=== PATIENT | male | born 1950 | race Hispanic/Latino ===

== ENCOUNTER 2017-10-25 08:14 | Day surgery (SDC) | payer MEDICARE ==
[2017-10-24 13:17] VITALS: BMI 29.4
[2017-10-25 09:14] LABS: Hemoglobin 15.8 g/dL (14.0-18.0); Mean Corpuscular HGB CONC 34.8 g/dL (32.0-36.0); Mean Corpuscular Hemoglobin 33.2 pg (27.0-31.0); Mean Corpuscular Volume 95.2 fl (80.0-94.0); Mean Platelet Volume 8.9 fL (7.4-10.4); Platelet Count 155 thou/uL (130-400); RBC Distribution Width 11.9 % (11.5-14.5); Red Blood Cell (RBC) Count 4.77 mill/uL (4.70-6.10); White Blood Cell (WBC) Count 6.3 thou/uL (4.8-10.8)
[2017-10-25 09:33] LABS: PTT 31.5 SEC (22.9-36.1); Prothrombin Time 13.2 SEC (12.0-14.7)
[2017-10-25 09:35] LABS: Anion Gap 11 mmol/L (10-20); BUN (Urea Nitrogen) 21 mg/dL (8.4-25.7); Calc. Creatinine Clearance 84 mL/min (70-130); Calcium 8.8 mg/dL (7.8-10.44); Carbon Dioxide 22 mmol/L (23-31); Chloride 109 mmol/L (98-107); Estimated GFR-MDRD 65; Glucose 125 mg/dL (80-115); Potassium 4.3 mmol/L (3.5-5.1); Sodium 138 mmol/L (136-145)
[2017-10-25] MEDS ORDERED: CEFAZOLIN/Water 2 GM/20 ML SYRINGE ONE (09:36)
[2017-10-25] MEDS ORDERED: Sodium Chloride 0.9% 10 ML ONE (09:53)
[2017-10-25] MEDS ORDERED: Thrombin 5000 UNITS/5 ML VIAL ONE (09:53)
[2017-10-25] MEDS ORDERED: Fentanyl 100 MCG/2 ML VIAL ONE ×3 (10:31→13:27)
[2017-10-25] MEDS ORDERED: Lidocaine 1% PF 5 ML VIAL ONE (11:24)
[2017-10-25] MEDS ORDERED: ePHEDrine/0.9% NaCl/PF SYRINGE 50 mg/10 ml ONE ×2 (11:24→12:39)
[2017-10-25] MEDS ORDERED: Propofol 200 MG/20 ML VIAL ONE (11:24)
[2017-10-25] MEDS ORDERED: Ondansetron HCl/PF 4 MG/2 ML Vial ONE (11:24)
[2017-10-25] MEDS ORDERED: Ketorolac Tromethamine 30 MG/ML VIAL ONE (11:24)
[2017-10-25] MEDS ORDERED: Rocuronium Bromide 50 MG/5 ML VIAL ONE (12:05)
[2017-10-25] MEDS ORDERED: Ondansetron HCl/PF 4 MG/2 ML Vial IVP PRN ×2 (13:17→13:34)
[2017-10-25] MEDS ORDERED: Promethazine HCl 25 MG/ML VIAL IM PRN ×2 (13:17→13:34)
[2017-10-25] MEDS ORDERED: Promethazine HCl 25 MG/ML VIAL SLOW IVP PRN (13:17)
[2017-10-25] MEDS ORDERED: traMADol HCl 50 MG TAB PO PRN (13:34)
[2017-10-25] MEDS ORDERED: Acetaminophen/Codeine 30-300mg Tablet PO PRN (13:34)
[2017-10-25] MEDS ORDERED: Fleet Enema 133 ML BOT PR PRN (13:34)
[2017-10-25] MEDS ORDERED: Acetaminophen 325 MG TAB PO PRN (13:34)
[2017-10-25] MEDS ORDERED: HYDROcodone/Acetaminophen 7.5/325 mg Tablet PO PRN (13:34)
[2017-10-25] MEDS ORDERED: Mag-Al 1200 mg/1200 mg/30 ML UDCUP PO PRN (13:34)
[2017-10-25] MEDS ORDERED: Milk Of Magnesia 30 ML UDCUP PO PRN (13:34)
[2017-10-25] MEDS ORDERED: Bisacodyl 10 MG SUPP PR PRN (13:34)
[2017-10-25] MEDS ORDERED: tiZANidine HCl 4 MG TAB PO PRN (13:34)
--- NOTE | 2017-10-25 16:23 | OP ---
OR: 12 WOUND TYPE: Type 1 wound. SURGEON: Abimael Pinzon M.D. ALUMINUM SIDING INSTALLER: Ry Skelton PA-C. PREPROCEDURE DIAGNOSES: Cervical stenosis with spondylolisthesis with myelopathy and radiculopathy. POSTPROCEDURE DIAGNOSES: Cervical stenosis with spondylolisthesis with myelopathy and radiculopathy. PROCEDURE: 1. Anterior C3-C4, C4-C5 diskectomy for decompression of spinal cord and nerve roots. 2. Preparation of endplates C3-C4, C4-C5 for arthrodesis, placement of interbody spacers C3-C4, C4-C 5 arthrodesis, packed with local bone autograft obtained from same incision and allograft C3-C4, C4-C 5. 3. Anterior cervical plate and screw fixation C3, C4, C5 for effusion. 4. Use of operative microscope for microdissection. PROCEDURE IN DETAIL: After informed consent was obtained from the patient, the patient was brought t o OR 12. Proper patient pause and identification was carried out. He was placed under excellent gen eral endotracheal anesthesia and positioned supine on the operating room table, and all appropriate p oints were padded. The right anterior oblique dutch, an incision was drawn out, and this region was s terilely cleansed, prepared, and draped. Proper patient pause and identification was carried out. T he wound was then opened with a combination of sharp, monopolar and blunt dissection, proceeding late ral to the larynx and pharynx and medial to the right carotid sheath. We identified the prevertebral layer of deep cervical fascia. The retractors were placed. The longus colli muscles were swept lat erally. Localization film confirmed our area of interest. We then performed distraction at C3-C4, a nd a microscope was brought in for microdissection. A diskectomy at C3-C4 then occurred, and the end plates were prepared, and interbody spacer of appropriate dimension was placed at C3-C4. This was pa cked with local bone autograft obtained from same incision and allograft arthrodesis, C3-C4. We then turned our attention to release of the distraction at C3-C4, and distraction at C4-C5 then occurred. Diskectomy at C4-C5 was then performed, and diskectomy for decompression of spinal cord and nerve r oots at C4-C5 also occurred. The endplates were prepared, and interbody spacer of appropriate dimens ion was placed for arthrodesis. This was packed with local bone autograft obtained from same incisio n and allograft. Copious irrigation occurred throughout as did maximizing hemostasis. The microscop e was then removed, and anterior cervical plate and screw fixation at C3, C4, C5 then occurred, and f inal tightening did as well. We satisfied with both gross and fluoroscopic visualization with our co nstruct. The wound was then closed in anatomic layers over a drain. The patient then emerged from a nesthesia.
[2017-10-25] MEDS: Sodium Chloride 0.9% 1,000 ML IV SCH (16:50)
[2017-10-25] MEDS: CEFAZOLIN/Water 2 GM/20 ML SYRINGE SLOW IVP SCH (17:06)
[2017-10-25] MEDS: Morphine 2 MG/ML SYRINGE SLOW IVP PRN (19:51)
--- NOTE | 2017-10-25 19:54 | EKG ---
Test Reason : PREOP Blood Pressure : / mmHG Vent. Rate : 058 BPM Atrial Rate : 058 BPM P-R Int : 210 ms QRS Dur : 100 ms QT Int : 418 ms P-R-T Axes : 014 -40 -03 degrees QTc Int : 410 ms Sinus bradycardia with 1st degree A-V block Left axis deviation Moderate voltage criteria for LVH, may be normal variant Abnormal ECG When compared with ECG of 14-AUG-2017 11:37, No significant change was found Confirmed by SUGAR CACERES, SBlack ([id number]) on 10/25/2017 7:54:23 PM Referred By: GIULIANO Confirmed By:DR. Tj WOOTEN MD
[2017-10-25] MEDS: Atorvastatin Calcium 10 MG TAB PO SCH (20:25)
[2017-10-25] MEDS: Lisinopril 20 MG TAB PO SCH (20:25)
[2017-10-25] MEDS ORDERED: Prevnar 13-Val Conj/PF 0.5 ML SYRINGE IM ONE (21:00)
[2017-10-26] MEDS: CEFAZOLIN/Water 2 GM/20 ML SYRINGE SLOW IVP SCH ×3 (00:14→17:33)
[2017-10-26] MEDS: Morphine 2 MG/ML SYRINGE SLOW IVP PRN (00:18)
[2017-10-26] MEDS: Sodium Chloride 0.9% 1,000 ML IV SCH ×2 (04:45→18:11)
[2017-10-26] MEDS: Tamsulosin HCl 0.4 MG CAP PO SCH ×2 (09:50→09:53)
--- NOTE | 2017-10-26 09:59 | PRG ---
DATE OF SERVICE: 10/26/2017 Mr. Boss underwent ACDF C3 through C5 yesterday with Dr. Pinzon. He states his hand weakness is over all improving postoperatively. He has been up walking, but has had some difficulty with urination. He has tolerated clear liquid diet, although has been receiving IV pain medications rather than oral pain medications. Again, he states that his pain is under good control. The patient's neurologic ex am remained at baseline with mild bilateral hand intrinsic weakness, although this does appear to be improved postoperatively. He has full strength in the bilateral upper extremities and lower extremit ies. His APURVA drain output is trending downward. The plan is to remove his drain this afternoon after he has tolerated pills and clear liquid breakfas t. I would also like him to urinate prior to discharge and again he was bladder scanned at 7 this mo rning and has not yet urinated. We will check back on the patient, but again plan for dismissal late r today. We did discuss appropriate postoperative activity restrictions as well.
[2017-10-26] MEDS: Atorvastatin Calcium 10 MG TAB PO SCH (20:18)
[2017-10-26] MEDS: Lisinopril 20 MG TAB PO SCH (20:18)
[2017-10-27] MEDS: CEFAZOLIN/Water 2 GM/20 ML SYRINGE SLOW IVP SCH ×2 (01:00→10:24)
[2017-10-27] MEDS: Sodium Chloride 0.9% 1,000 ML IV SCH (05:23)
[2017-10-27 08:14] VITALS: BP 124/79; TEMP 98.4
[2017-10-27] MEDS: Tamsulosin HCl 0.4 MG CAP PO SCH ×2 (10:23→10:24)
--- NOTE | 2017-10-27 12:20 | PRG ---
DATE OF SERVICE: 10/27/2017 SUBJECTIVE: Mr. Boss is now 2 days postop ACDF. APURVA drain started to have significantly reduced his drainage and we will go ahead and remove this at bedside. His pain level has improved significantly. He has been ambulating on his own and I think he is ready for discharge. We will [facility] with outpatient followup anticipated in the clinic. This is Nando Mason PA-C, dictating for Dr. Alon Pedraza.
== END 2017-10-27 13:19 | disposition home or self-care (01) ==
LOC: SDC 08:14 → SURG B 13:32 → SDC 10-27 13:19
PROVIDERS: ATTEND Surgery
PROC: 0RG20A0 Fusion of 2 or more Cervical Vertebral Joints with Interbody Fusion Device, Anterior Approach, Anterior Column, Open Approach (ICD-10-PCS; principal; 2017-10-25)
PROC: 0RG2070 Fusion of 2 or more Cervical Vertebral Joints with Autologous Tissue Substitute, Anterior Approach, Anterior Column, Open Approach (ICD-10-PCS; 2017-10-25)
PROC: 0RT30ZZ Resection of Cervical Vertebral Disc, Open Approach (ICD-10-PCS; 2017-10-25)
DX: M54.12 Radiculopathy, cervical region (principal); M48.02 Spinal stenosis, cervical region; M43.12 Spondylolisthesis, cervical region; Z98.890 Other specified postprocedural states
CPT/HCPCS: 20930; 20936; 22551; 22552; 22853 ×2; 76001; 80048; 85027; 85610; 85730; 93005; 96374; C1713; 36415; 93010; A4216; J1885; J2001; J2270; J2405; J2704; J3010; J3490

== ENCOUNTER 2017-12-10 12:45 | Outpatient (CLI) | payer MEDICARE ==
--- NOTE | 2017-12-10 15:26 | RAD ---
CERVICAL SPINE THREE VIEWS: History: Cervical fusion. Comparison: None. FINDINGS: There is no prevertebral soft tissue swelling. Predental space is normal. There is anterior fusion pl ate with transvertebral body screw at C3, C4, and C5. Disc prosthesis at C3-4 and C4-5. No perihardwa re lucency. There is mild degenerative change at C5-6. On the AP projection, there are degenerative c hanges of the facets. On the open mouth projection, the odontoid process is obscured. Lateral masses of C1 and C2 articulate appropriately. IMPRESSION: Degenerative change of the cervical spine. Post-operative change of the cervical spine. POS: [facility]
== END 2017-12-10 12:46 | disposition home or self-care (01) ==
LOC: TBSIIMAG 12:45
PROVIDERS: ATTEND Surgery
DX: M50.20 Other cervical disc displacement, unspecified cervical region (principal); M47.892 Other spondylosis, cervical region; Z98.890 Other specified postprocedural states
CPT/HCPCS: 72040

== ENCOUNTER 2019-04-30 10:56 | Outpatient (CLI) | payer OTHER ==
--- NOTE | 2019-04-30 11:11 | RAD ---
EXAM: Chest 2 views: HISTORY: Occupational exposure to asbestos COMPARISON: None. FINDINGS: There is a normal-sized cardiomediastinal silhouette. There is no evidence of consolidation, mass, or pleural effusion. The bones are unremarkable. IMPRESSION: No evidence of acute cardiopulmonary disease
== END 2019-04-30 10:57 | disposition home or self-care (01) ==
LOC: BICRAD 10:56
PROVIDERS: ATTEND Legal Medicine
DX: Z77.090 Contact with and (suspected) exposure to asbestos (principal)
CPT/HCPCS: 71046

== ENCOUNTER 2019-05-30 13:08 | Outpatient (CLI) | payer MEDICARE ==
--- NOTE | 2019-05-30 14:42 | MRI ---
LUMBAR SPINE MRI NONCONTRAST: INDICATION: Right side sciatica, lumbar pain. COMPARISON: No prior imaging. FINDINGS: Grade I spondylolisthesis at L4-5 is present. The conus medullaris is normal in morphology and termi nates at the L1 level. There is no acute compression fracture. Minimal degenerative marrow signal a lteration of the L4-5 level is present. There is disk space narrowing at L4-5. Bilateral degenerati ve facet hypertrophy is present, which is greatest at L4-5 level, moderate in degree. Incidental not e of prominence of the left renal hilum and the visualized left ureter, of indeterminate chronicity a nd indeterminate etiology. Correlate clinically. 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 There is linear T1 hyperintensity of the posterior aspect of the vertebral canal on the basis of lipo matous hypertrophy of the filum terminale. L5-S1: Mild concentric disk bulge without high-grade central canal stenosis or significant neural fo raminal compromise. L4-5: Grade I spondylolisthesis is present as described above. This does result in moderate right a nd mild left neural foraminal stenosis. Mild central canal compromise also present. L3-4: Broad-based disk-osteophyte, superimposed upon congenital AP diameter narrowing of the vertebr al canal is present with mild to moderate central canal stenosis and moderate bilateral neural forami nal compromise. L2-3: Moderate central canal stenosis due to congenital shortening and broad-based disk-osteophyte. Mild bilateral neural foraminal narrowing is present. L1-2: Mild effacement of ventral thecal sac and mild AP diameter narrowing of each neural foramen pr esent, with broad-based disk-osteophyte demonstrated. 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 POS: [facility]
== END 2019-05-30 13:09 | disposition home or self-care (01) ==
LOC: BICMRI 13:08
PROVIDERS: ATTEND Family Medicine
DX: M54.41 Lumbago with sciatica, right side (principal); M47.816 Spondylosis without myelopathy or radiculopathy, lumbar region; Q76.49 Other congenital malformations of spine, not associated with scoliosis
CPT/HCPCS: 72148

== ENCOUNTER 2019-07-31 07:14 | Outpatient (CLI) | payer MEDICARE ==
[2019-07-31 13:09] LABS: Bacteria/HPF None Seen HPF (None Seen); Bilirubin Negative (Negative); Blood, Urine Negative (Negative); Clarity Clear (Clear); Glucose, Urine (Dipstick) Normal (Negative); Leukocyte Negative Leu/uL (Negative); Nitrite Negative (Negative); Protein, Urine (Dipstick) Negative (Neg-Trace); RBC/HPF 0-3 HPF (0-3); Squamous Epithelial None Seen HPF (0-3); Urobilinogen 3 mg/dL (Less than 2); WBC/HPF 0-3 HPF (0-3)
[2019-07-31 13:11] LABS: #Basophils 0.1 thou/uL (0.0-0.2); #Eosinphils 0.1 thou/uL (0.0-0.7); #Lymphocytes 1.3 thou/uL (1.20-3.40); #Monocytes 0.8 thou/uL (0.11-0.59); %Eosinophils 1.7 % (0.0-10.0); %Lymphocytes 17.6 % (21.0-51.0); %Monocytes 11.3 % (0.0-10.0); %Neutrophils 68.4 % (42.0-75.0); Hemoglobin 16.2 g/dL (14.0-18.0); Mean Corpuscular HGB CONC 33.6 g/dL (32.0-36.0); Mean Corpuscular Hemoglobin 31.7 pg (27.0-31.0); Mean Corpuscular Volume 94.1 fL (78.0-98.0); Mean Platelet Volume 8.9 fL (7.4-10.4); Platelet Count 182 thou/uL (130-400); Red Blood Cell (RBC) Count 5.13 mill/uL (4.70-6.10); White Blood Cell (WBC) Count 7.3 thou/uL (4.8-10.8)
[2019-07-31 13:29] LABS: Anion Gap 12 mmol/L (10-20); BUN (Urea Nitrogen) 18 mg/dL (8.4-25.7); Calc. Creatinine Clearance 0 mL/min (70-130); Carbon Dioxide 21 mmol/L (23-31); Chloride 106 mmol/L (98-107); Estimated GFR-MDRD 72; Glucose 95 mg/dL (83-110); Potassium 4.2 mmol/L (3.5-5.1); Sodium 135 mmol/L (136-145)
== END 2019-07-31 07:15 | disposition home or self-care (01) ==
LOC: LABBT 07:14
PROVIDERS: ATTEND Orthopaedic Surgery
DX: Z01.818 Encounter for other preprocedural examination (principal); M17.12 Unilateral primary osteoarthritis, left knee
CPT/HCPCS: 80048; 81001; 85025; 85610; 87081; 93005; 93010

== ENCOUNTER 2019-08-11 05:28 | Day surgery (SDC) | payer MEDICARE ==
[2019-08-11] MEDS ORDERED: Tranexamic Acid 1,000 MG/10 ML VIAL ONE ×2 (05:59→10:02)
[2019-08-11] MEDS ORDERED: Midazolam HCl 2 mg/2 ml Vial ONE (06:06)
[2019-08-11] MEDS ORDERED: Fentanyl 100 MCG/2 ML VIAL ONE ×3 (06:06→09:35)
[2019-08-11] MEDS ORDERED: Ondansetron PF 4 MG/2 ML Vial IVP PRN ×2 (06:22→09:00)
[2019-08-11] MEDS ORDERED: Ropivacaine HCl/PF 250 ML in Premix Bag 1 BAG NERVE BLCK SCH (06:22)
[2019-08-11] MEDS ORDERED: HYDROcodone/Acetaminophen 10/325 mg Tablet PO PRN (06:22)
[2019-08-11] MEDS ORDERED: Promethazine HCl 25 MG/ML VIAL IM PRN ×3 (06:22→09:00)
[2019-08-11] MEDS ORDERED: Zolpidem Tartrate 5 MG TAB PO PRN ×2 (06:22→09:00)
[2019-08-11] MEDS ORDERED: traMADol HCl 50 MG TAB PO PRN ×2 (06:22)
[2019-08-11] MEDS ORDERED: Fentanyl 100 MCG/2 ML VIAL IV PRN (06:23)
[2019-08-11] MEDS ORDERED: Vancomycin HCl 1.5 GM in Sodium Chloride 0.9% 250 ML 300 ML IVPB SCH ×2 (06:30→20:00)
[2019-08-11] MEDS ORDERED: Bupivacaine PF 0.5% 30 ML VIAL ONE (06:45)
[2019-08-11] MEDS ORDERED: Lidocaine 1% (PF) 30 ML VIAL ONE (07:22)
[2019-08-11] MEDS ORDERED: methylPREDNISolone Acetate 40 mg/ml Vial ONE (07:22)
[2019-08-11] MEDS ORDERED: Promethazine HCl 25 MG/ML VIAL SLOW IVP PRN (08:40)
[2019-08-11] MEDS ORDERED: Ondansetron HCl/PF 4 MG/2 ML Vial IVP PRN (08:40)
[2019-08-11] MEDS ORDERED: Tranexamic Acid 1,000 MG in Sodium Chloride 0.9% 100 ML IVPB SCH (09:00)
[2019-08-11] MEDS ORDERED: Acetaminophen 325 MG TAB PO PRN (09:00)
[2019-08-11] MEDS ORDERED: diphenhydrAMINE 25 MG CAP PO PRN (09:00)
[2019-08-11] MEDS ORDERED: Ketorolac Tromethamine 30 MG/ML VIAL ONE (09:45)
[2019-08-11] MEDS: Aspirin 81 mg Enteric Coated Tablet PO SCH ×2 (10:41→20:13)
[2019-08-11] MEDS: Sodium Chloride 0.9% 1,000 ML IV SCH ×2 (10:41→18:26)
[2019-08-11 10:46] VITALS: BMI 29.8
[2019-08-11] MEDS ORDERED: Ketorolac Tromethamine 30 MG/ML VIAL IVP SCH (12:00)
[2019-08-11] MEDS: HYDROcodone/Acetaminophen 10/325 mg Tablet PO PRN ×2 (13:18→22:59)
[2019-08-11] MEDS: Ketorolac Tromethamine 30 MG/ML VIAL IVP SCH ×2 (13:19→20:14)
[2019-08-11] MEDS: CEFAZOLIN 2 GM in Premix Bag 1 BAG IVPB SCH ×2 (13:29→22:58)
--- NOTE | 2019-08-11 14:42 | PDOC.HOSPP ---
- Subjective Encounter Date: 08/11/19 Encounter Time: 13:00 Subjective: no sob or chest pain no pain now awaiting his lunch to come - Objective Vital Signs & Weight: Vital Signs (12 hours) Temp Pulse Resp BP Pulse Ox 08/11/19 10:25 97.6 F 64 18 118/72 94 L Weight Weight 208 lb Hospitalist ROS - Medication Medications: Active Medications Generic Name Dose Route Start Last Admin Trade Name Freq PRN Reason Stop Dose Admin Hydrocodone Bitart/Acetaminophen 1 tab 08/11/19 06:22 08/11/19 13:18 [place] 10/325 PO 1 tab Q4H PRN Administration Pain (1-3) Aspirin 81 mg 08/11/19 09:00 08/11/19 10:41 Ecotrin PO Not Given BID KEYSHA Cefazolin Sodium/Dextrose 2 gm 50 mls @ 100 mls/hr 08/11/19 14:00 08/11/19 13 :29 / Device IVPB 08/11/19 22:29 50 mls Q8HR KEYSHA Administration Sodium Chloride 1,000 mls @ 100 mls/hr 08/11/19 09:00 08/11/19 10:41 Normal Saline 0.9% IV Not Given .Q10H KEYSHA Ketorolac Tromethamine 30 mg 08/11/19 14:00 08/11/19 13:19 Toradol IVP 08/13/19 08:01 30 mg 0200,0800,1400,2000 KEYSHA Administration - Exam General Appearance: NAD, awake alert Eye: PERRL, anicteric sclera ENT: no oropharyngeal lesions, dry oral mucosa Neck: supple, no JVD Heart: RRR, no murmur Respiratory: no wheezes, no rales Gastrointestinal: soft, non-tender, non-distended, normal bowel sounds Extremities - other findings: left knee in dressing Neurological: cranial nerve grossly intact, no focal deficits Psychiatric: normal affect, A&O x 3 Hosp A/P (1) Status post total knee replacement, left Code(s): Z96.652 - PRESENCE OF LEFT ARTIFICIAL KNEE JOINT Status: Acute (2) HTN (hypertension) Code(s): I10 - ESSENTIAL (PRIMARY) HYPERTENSION Status: Chronic Qualifiers: Hypertension type: essential hypertension Qualified Code(s): I10 - Essential (primary) hypertension (3) Dyslipidemia Code(s): E78.5 - HYPERLIPIDEMIA, UNSPECIFIED Status: Chronic (4) BPH (benign prostatic hyperplasia) Code(s): N40.0 - BENIGN PROSTATIC HYPERPLASIA WITHOUT LOWER URINRY TRACT SYMP Status: Chronic Qualifiers: Lower urinary tract symptom presence: symptoms absent Qualified Code(s): N40.0 - Benign prostatic hyperplasia without lower urinary tract symptoms - Plan continue asp bid, lisinopril, lipitor and flomax is on ropivacaine nr block, fentanyl, toradol and norco prn pain hemostable post op PT/OT per ortho will f/u
[2019-08-11] MEDS ORDERED: ePHEDrine/0.9% NaCl/PF SYRINGE 50 mg/10 ml ONE (15:49)
[2019-08-11] MEDS ORDERED: Ropivacaine 0.2% HCl/PF (40 MG/20 ML VIAL) ONE (15:49)
[2019-08-11] MEDS ORDERED: Ondansetron PF 4 MG/2 ML Vial ONE (15:49)
[2019-08-11] MEDS ORDERED: Lidocaine 1% PF 5 ML VIAL ONE (15:49)
[2019-08-11] MEDS ORDERED: PROPOFOL 200 MG/20 ML VIAL ONE (15:49)
[2019-08-11] MEDS ORDERED: Dexamethasone 20 MG/5 ML VIAL ONE (15:49)
[2019-08-11] MEDS ORDERED: Ropivacaine 0.5% HCl/PF (150 MG/30 ML VIAL) ONE (15:49)
[2019-08-11] MEDS: Lisinopril 10 MG TAB PO SCH (20:14)
[2019-08-11] MEDS: Atorvastatin Calcium 10 MG TAB PO SCH (20:14)
[2019-08-12] MEDS: Ketorolac Tromethamine 30 MG/ML VIAL IVP SCH ×4 (02:07→20:26)
[2019-08-12] MEDS: HYDROcodone/Acetaminophen 10/325 mg Tablet PO PRN ×3 (03:43→17:50)
[2019-08-12 04:38] LABS: Hemoglobin 13.5 g/dL (14.0-18.0); Mean Corpuscular HGB CONC 34.7 g/dL (32.0-36.0); Mean Corpuscular Volume 95.1 fL (78.0-98.0); Mean Platelet Volume 8.6 fL (7.4-10.4); Platelet Count 147 thou/uL (130-400); RBC Distribution Width 11.8 % (11.5-14.5); Red Blood Cell (RBC) Count 4.09 mill/uL (4.70-6.10); White Blood Cell (WBC) Count 16.2 thou/uL (4.8-10.8)
[2019-08-12] MEDS: Sodium Chloride 0.9% 1,000 ML IV SCH ×3 (05:26→23:02)
--- NOTE | 2019-08-12 08:34 | PRG ---
DATE OF SERVICE: 08/12/2019 SUBJECTIVE: Ezequiel is a 69-year-old male, who is postop day 1 from a left total knee arthroplasty. He is doing exceptionally well. His pain is very well controlled. He is sitting up eating breakfast. OBJECTIVE: VITAL SIGNS: Temperature 98, pulse 60, respiratory rate 16, blood pressure is 134/69. NEUROLOGIC: He is alert and oriented to person, place, time, and situation, grossly responsive and appropriate with examiner. Nonfocal. His incision is clean without any erythema. No strikethrough. He is neurovascularly intact in the left lower extremity. LABORATORY DATA: Hemoglobin and hematocrit are 13.5 and 38.8. IMPRESSION: A 69-year-old male, postop day 1 left total knee arthroplasty, doing very well. PLAN: Continue current care. Initiate physical therapy. Probable discharge home tomorrow. Job ID: [id number]
[2019-08-12] MEDS: Senokot S 8.6-50 MG TAB PO SCH ×2 (08:50→20:26)
[2019-08-12] MEDS: Multivitamin W/ Minerals 1 TAB PO SCH (08:51)
[2019-08-12] MEDS: Aspirin 81 mg Enteric Coated Tablet PO SCH ×2 (08:51→20:30)
[2019-08-12] MEDS: Ferrous Gluconate 324 MG TAB PO SCH ×2 (08:51→17:48)
[2019-08-12] MEDS: Tamsulosin HCl 0.4 MG CAP PO SCH (08:51)
[2019-08-12] MEDS ORDERED: FLU VACC TS2019-20(65YR UP)/PF 180 MCG/0.5 ML SYRINGE IM ONE (09:00)
--- NOTE | 2019-08-12 10:49 | OP ---
DATE OF PROCEDURE: 08/11/2019 PREOPERATIVE DIAGNOSIS: Bilateral knee arthritis with left knee worse than the right. PROCEDURES PERFORMED: 1. Left total knee replacement using Nicholas pinless navigation. 2. Corticosteroid injection, right knee. DESIGN PRINTER BALLOON: Bronson Ochoa PA-C. ANESTHESIA: The patient had a general anesthetic as well as preoperative block to the left leg. IMPLANTS: To the left knee include Nicholas Triathlon total knee system. The femur was a size 5 cruciate retaining . We used a primary size 5 tibial baseplate. We used a 5 x 9 mm X3 tibial poly and a 29 x 9 X3 patella. DISPOSITION: He did go to recovery room in stable condition. We also injected the right knee with 80 mg of Depo-Medrol. DESCRIPTION OF PROCEDURE: After all appropriate consent forms were explained and signed, Ezequiel was taken back to the operating room and at this time was given general anesthetic. Once the level of anesthesia was appropriate, the right knee was cleaned with alcohol, and 80 mg of Depo-Medrol with plain lidocaine was injected into the right knee. Band-Aid was applied. We then turned our attention to the left lower extremity. After all appropriate consent forms were explained and signed, the patient was taken back to the operating room and at this time was given general anesthetic. Once the level of anesthesia was appropriate, a well-padded tourniquet was placed on the left leg, and the leg was then prepped and draped in standard surgical fashion. The limb was exsanguinated and tourniquet taken up to 300 mmHg. Midline incision was made with a 10 blade down through the skin and subcutaneous tissue. Bovie electrocautery was used to coagulate any brisk venous bleeding. A new blade was used to make a medial parapatellar arthrotomy. Small subperiosteal release was performed medially and excess fat pad was removed. The knee was flexed up to gain access to the femur. The femur was navigated and distal femoral resection was made. Epicondylar access was used to align our sizing jig and this was pinned in place. We sized our femur to be a size 5. 4:1 cutting block was applied and pinned. Anterior and posterior chamfer cuts were then made. We navigated out our proximal tibia and made our proximal tibial resection. Spreaders were used to remove any posterior osteophytes off the back of the femur as well as remaining meniscal tissue. A long alignment martir was then used to achieve correct rotation of our tibial baseplate and a size 5 cruciate retaining tibial baseplate was chosen. This was pinned in place. We trialed the polyethylene and a 5 x 9 mm X3 tibial polyethylene gave us full extension and good stability throughout range of motion. Two towel clips and a saw were used to cut our patella. Three lug nuts were drilled and 29 x 9 X3 patella was trialed which sat nicely in the trochlear groove. We then drilled our femur and punched our tibia. All components were removed. The knee was thoroughly irrigated and dried. Cement was mixed into the cement gun on the back table. Components were then placed. The knee was held out in full extension until the cement had dried. All excess bone cement was removed. Multiple #2 Vicryl stitches as well as a Quill were used to close our extensor mechanism. 0 Quill followed by a running Monoderm was then used to close the skin. Surgicel glue was then used on the skin. Once this had dried, soft tissue dressing was applied to the limb, tourniquet was let down, and the toes pinked up nicely. The patient was then awakened and taken to the recovery room in stable condition. All counts were correct at the end of the case. The patient did receive preoperative IV antibiotics. The patient was injected with Marcaine for postoperative pain relief. Job ID: [id number] [facility]
[2019-08-12] MEDS: Atorvastatin Calcium 10 MG TAB PO SCH (20:26)
[2019-08-12] MEDS: Lisinopril 10 MG TAB PO SCH (20:26)
[2019-08-13] MEDS: HYDROcodone/Acetaminophen 10/325 mg Tablet PO PRN ×3 (00:54→08:34)
[2019-08-13 04:24] LABS: Hemoglobin 12.4 g/dL (14.0-18.0); Mean Corpuscular HGB CONC 34.9 g/dL (32.0-36.0); Mean Corpuscular Hemoglobin 33.4 pg (27.0-31.0); Mean Corpuscular Volume 95.6 fL (78.0-98.0); Mean Platelet Volume 8.8 fL (7.4-10.4); Platelet Count 126 thou/uL (130-400); RBC Distribution Width 12.1 % (11.5-14.5); White Blood Cell (WBC) Count 13.2 thou/uL (4.8-10.8)
[2019-08-13] MEDS: Ketorolac Tromethamine 30 MG/ML VIAL IVP SCH ×2 (04:40→08:35)
[2019-08-13 08:14] VITALS: BP 135/76; TEMP 97.9
[2019-08-13] MEDS: Senokot S 8.6-50 MG TAB PO SCH (08:33)
[2019-08-13] MEDS: Aspirin 81 mg Enteric Coated Tablet PO SCH (08:33)
[2019-08-13] MEDS: Multivitamin W/ Minerals 1 TAB PO SCH (08:33)
[2019-08-13] MEDS: Ferrous Gluconate 324 MG TAB PO SCH (08:33)
[2019-08-13] MEDS: Tamsulosin HCl 0.4 MG CAP PO SCH (08:33)
== END 2019-08-13 14:05 | disposition home or self-care (01) ==
LOC: SDC 05:28 → SJJU 09:00 → SDC 08-13 14:05
PROVIDERS: ATTEND Orthopaedic Surgery
PROC: 0SRD0J9 Replacement of Left Knee Joint with Synthetic Substitute, Cemented, Open Approach (ICD-10-PCS; principal; 2019-08-11)
DX: M17.12 Unilateral primary osteoarthritis, left knee (principal); I10 Essential (primary) hypertension; E78.5 Hyperlipidemia, unspecified; N40.0 Benign prostatic hyperplasia without lower urinary tract symptoms; Z79.899 Other long term (current) drug therapy
CPT/HCPCS: 27447; 85027; 86850; 86900; 86901; 90662; 97110; 97116 ×3; 97139 ×4; 97150 ×2; 97530 ×2; 98961; C1713; C1776; G0008; 36415; 90471; J0690; J1030; J1100; J1885; J2001; J2250; J2405; J2704; J2795; J3010; J3370; J7050; S0020

== ENCOUNTER 2019-09-29 12:57 | Outpatient (CLI) | payer MEDICARE ==
--- NOTE | 2019-09-29 13:23 | RAD ---
XR Lumbar Spine Min 4 View HISTORY: Back pain and sciatica. COMPARISON: MRI study of 05/30/2019. FINDINGS: The vertebral bodies are normal in height. There are degenerative osteophytes along the cou rse of the spine. There is mild disc narrowing at the L5-S1 level. There is 7 to 8 mm of spondylolisthesis which is not felt to significantly change between the flexion and extension views. Pedicles are intact. IMPRESSION: Arthritic changes of the spine changes are centered at the L4-5 level with a grade 1 spon dylolisthesis.
== END 2019-09-29 12:58 | disposition home or self-care (01) ==
LOC: TBSIIMAG 12:57
PROVIDERS: ATTEND Surgery
DX: M54.16 Radiculopathy, lumbar region (principal); M43.16 Spondylolisthesis, lumbar region
CPT/HCPCS: 72110